=== PATIENT | female | born 1990 | race African-American/Black ===

== ENCOUNTER 2022-07-09 10:28 | Day surgery (SDC) | payer BC ==
[2022-07-05 14:05] VITALS: BMI 24.3
[~2022-07-09 10:28] MED LIST: PROPOFOL 40 ML ONE
[2022-07-09] MEDS ORDERED: Glycopyrrolate 0.2 MG/ML 5 ML SYRINGE ONE (11:08)
[2022-07-09] MEDS ORDERED: PROPOFOL 40 ML ONE (11:09)
[2022-07-09] MEDS ORDERED: PROPOFOL 20 ML ONE (12:05)
== END 2022-07-09 12:55 | disposition home or self-care (01) ==
LOC: CSHSDC 10:28
PROVIDERS: ATTEND Internal Medicine Gastroenterology
PROC: 0DBP8ZZ Excision of Rectum, Via Natural or Artificial Opening Endoscopic (ICD-10-PCS; principal; 2022-07-09)
PROC: 0DBN8ZZ Excision of Sigmoid Colon, Via Natural or Artificial Opening Endoscopic (ICD-10-PCS; principal; 2022-07-09)
DX: K63.5 Polyp of colon (principal); K62.1 Rectal polyp; K64.9 Unspecified hemorrhoids; K59.09 Other constipation; K92.1 Melena; Z86.19 Personal history of other infectious and parasitic diseases; Z87.891 Personal history of nicotine dependence
CPT/HCPCS: 88305; J2704